=== PATIENT | male | born 1930 | race African-American/Black ===

== ENCOUNTER 2017-08-12 10:33 | Outpatient (CLI) | payer MEDICARE, BC ==
--- NOTE | 2017-08-12 12:58 | ULT ---
ULTRASOUND OF THE SPLEEN: Clinical history: Enlarged spleen. FINDINGS: Sonographic evaluation of the spleen reveals a length of 9.21 cm and a transverse dimension of 3.1 c m. No focal splenic lesion is seen. There is vascularity noted by doppler assessment at the splenic hilum. IMPRESSION: Normal volume of the spleen, with a length of 9.2 cm. POS: [facility]
== END 2017-08-12 10:34 | disposition home or self-care (01) ==
LOC: ULT 10:33
PROVIDERS: ATTEND Internal Medicine Medical Oncology
DX: R16.1 Splenomegaly, not elsewhere classified (principal); D69.6 Thrombocytopenia, unspecified; K21.9 Gastro-esophageal reflux disease without esophagitis
CPT/HCPCS: 76705

== ENCOUNTER 2019-06-03 07:50 | Emergency (ER) | payer MEDICARE, BC ==
--- NOTE | 2019-06-03 09:10 | RAD ---
RADIOGRAPH CHEST 1 VIEW RADIOGRAPH ABDOMEN 2 VIEWS: Date: 06/03/19 Time: 0842 HOURS HISTORY: 88-year-old male with constipation. Lack of bowel movement for 3-4 days. FINDINGS: Chest: Ectasia and tortuosity of the thoracic aorta. Sternotomy wires. No cardiomegaly. Chronic inte rstitial infiltrate at right lower lung zone laterally. Chronic blunting of bilateral costophrenic an gles. Milder chronic interstitial infiltrate at left lateral base. Upper lobes are clear. No pneumoth orax. No definitive evidence of pneumoperitoneum, although the chronic changes at the left base make it difficult to evaluate for free air under the left hemidiaphragm. Abdomen: 5 mm round calcification overlies the left renal lower pole shadow. No small bowel dilation . Moderate volume of stool in right hemicolon and rectum. 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 No evidence of organomegaly. IMPRESSION: 1. Chronic lower lobe interstitial pulmonary changes. 2. Ectasia and tortuosity of thoracic aorta. 3. No acute intrathoracic findings. 4. Normal bowel gas pattern. 5. Nephrolithiasis consisting of at least 1 small calculus of left kidney. JN [] POS: [facility]
[2019-06-03 09:14] LABS: #Eosinphils 0.1 thou/uL (0.0-0.7); #Lymphocytes 1.5 thou/uL (1.20-3.40); #Monocytes 0.4 thou/uL (0.11-0.59); #Neutrophils 3.7 thou/uL (1.40-6.50); %Basophils 0.1 % (0.0-1.0); %Eosinophils 2.5 % (0.0-10.0); %Lymphocytes 25.5 % (21.0-51.0); %Monocytes 6.7 % (0.0-10.0); %Neutrophils 65.2 % (42.0-75.0); Hemoglobin 11.4 g/dL (14.0-18.0); Mean Corpuscular Hemoglobin 31.7 pg (27.0-31.0); Mean Platelet Volume 7.8 fL (7.4-10.4); Platelet Count 143 thou/uL (130-400); RBC Distribution Width 11.7 % (11.5-14.5); Red Blood Cell (RBC) Count 3.61 mill/uL (4.70-6.10); White Blood Cell (WBC) Count 5.7 thou/uL (4.8-10.8)
[2019-06-03 09:39] LABS: ALT (SGPT) Less than 7 U/L (8-55); AST (SGOT) 14 U/L (5-34); Albumin 3.4 g/dL (3.4-4.8); Alkaline Phosphatase 60 U/L (40-150); Anion Gap 12 mmol/L (10-20); BUN (Urea Nitrogen) 18 mg/dL (8.4-25.7); Bilirubin, Total 0.6 mg/dL (0.2-1.2); Calc. Creatinine Clearance 0 mL/min (70-130); Calcium 9.6 mg/dL (7.8-10.44); Carbon Dioxide 22 mmol/L (23-31); Chloride 106 mmol/L (98-107); Estimated GFR-MDRD 53; Glucose 125 mg/dL (83-110); Potassium 4.1 mmol/L (3.5-5.1); Protein, Total 8.4 g/dL (5.8-8.1); Sodium 136 mmol/L (136-145)
--- NOTE | 2019-06-03 10:05 | CT ---
CT Abdomen Pelvis W Con: 06/03/2019 8:53 AM CLINICAL INFORMATION: Constipation for one week and abdominal pain COMPARISON: None. TECHNIQUE: Multiple contiguous axial images were obtained and a CT of the abdomen and pelvis with IV contrast. C oronal reformats were performed. FINDINGS: Lower Chest: Increased interstitial lung markings in the lung bases. 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 Abdomen: Liver: within normal limits. Bile Ducts: Normal caliber. Gallbladder: No calcified gallstones. Normal caliber wall. Pancreas: within normal limits. Spleen: within normal limits. Adrenals: within normal limits. Kidneys: Nonobstructing calcifications are seen in both kidneys measuring up to 5 mm in size on the l eft. Tiny subcentimeter hypodensities likely represent cysts in both kidneys. Pelvis: Reproductive Organs: No pelvic masses. Ureters: within normal limits. Bladder: within normal limits. Peritoneum: No ascites or free air, no fluid collection. Bowel: Normal caliber. Normal appendix. Minimal stool retention is seen in the cecum and rectal vault . Mesentery and Retroperitoneum: No enlarged mesenteric or retroperitoneal lymph nodes. Vessels: Atherosclerotic calcifications. Abdominal Wall: within normal limits. Bones: Degenerative changes in the spine. IMPRESSION: No evidence of acute intraabdominal or pelvic abnormality.
== END 2019-06-03 13:26 | disposition home or self-care (01) ==
LOC: ERS 07:50
DX: K59.00 Constipation, unspecified (principal); I10 Essential (primary) hypertension; E11.9 Type 2 diabetes mellitus without complications; E78.00 Pure hypercholesterolemia, unspecified; J45.909 Unspecified asthma, uncomplicated; F17.210 Nicotine dependence, cigarettes, uncomplicated; Z79.899 Other long term (current) drug therapy; Z79.82 Long term (current) use of aspirin
CPT/HCPCS: 74022; 74177; 80053; 85025

== ENCOUNTER 2019-12-28 11:35 | Outpatient (CLI) | payer MEDICARE, BC ==
--- NOTE | 2019-12-28 13:45 | RAD ---
TWO VIEWS OF THE CHEST: DATE: 12/28/2019. COMPARISON: 03/15/2016. HISTORY: Rheumatoid arthritis with cough. FINDINGS: There are coarse increased linear interstitial densities both lungs with a bibasilar predominance. T he lungs are hyperinflated. There is atherosclerotic calcification in the aortic arc. Midline morales otomy wires are present. No pneumothorax, focal consolidation, or alveolar edema. Linear calcified pleural plaque formation suspected in the lung bases. IMPRESSION: Fibrotic changes within the lung parenchyma, not significantly changed when compared to the prior exa m. Findings could be best assessed with chest CT as clinically warranted. No focal consolidation or alveolar edema. POS: [facility]
== END 2019-12-28 11:36 | disposition home or self-care (01) ==
LOC: BICRAD 11:35
PROVIDERS: ATTEND Internal Medicine Rheumatology
DX: M05.79 Rheumatoid arthritis with rheumatoid factor of multiple sites without organ or systems involvement (principal)
CPT/HCPCS: 71046